=== PATIENT | female | born 1945 | race Asian ===

== ENCOUNTER 2023-10-07 11:28 | Inpatient (IN) | payer BC, MEDICAID ==
[~2023-10-07] VITALS: Ht 152.4 cm; Wt 69.0 kg
[2023-10-07 12:57] LABS: Basophils # (auto) 0 10 ^3/uL (0-0.2); Basophils % (auto) 0.2 % (0.0-2.0); Eosinophils # (auto) 0.1 10 ^3/uL (0-0.8); Eosinophils % (auto) 0.7 % (0.0-7.0); Hematocrit 40.5 % (36.0-46.0); Lymphocytes # (auto) 2.8 10 ^3/uL (0.4-5.4); Lymphocytes % (auto) 30.1 % (10.0-50.0); Mean Corpuscular Hemoglobin 33.8 pg (28.0-32.0); Mean Corpuscular Hgb Conc. 34.5 g/dL (32.0-36.0); Monocytes # (auto) 0.7 10 ^3/uL (0-1.3); Monocytes % (auto) 7.7 % (0.0-12.0); Neutrophils # (auto) 5.8 10 ^3/uL (1.6-8.6); Neutrophils % (auto) 61.3 % (37.0-80.0); Nucleated Red Blood Cells % 0.1 %; Red Blood Cells 4.14 10^6/uL (4.0-5.20); Red Cell Distribution Width 13.2 % (11.8-14.3); White Blood Cell 9.4 10^3/uL (4.4-10.8)
[2023-10-07 13:13] LABS: Chloride 105 mmol/L (98-107); Potassium 3.9 mmol/L (3.5-5.1); Sodium 139 mmol/L (136-145)
[2023-10-07 13:14] LABS: Anion Gap 7 (5-15); Carbon Dioxide 27 mmol/L (20-30)
[2023-10-07 13:15] LABS: Calcium 9.9 mg/dL (8.7-10.4)
[2023-10-07 13:19] LABS: BUN/Creatinine Ratio 22.2 (10.0-20.0); Blood Urea Nitrogen 18 mg/dL (9-23); Glucose 95 mg/dL (74-106)
[2023-10-07 16:45] LABS: Urine Amorphous Crystal FEW /hpf (None Seen); Urine Bacteria FEW /hpf (None Seen); Urine Blood Negative /uL (Negative); Urine Clarity Ex.Turbid (Clear); Urine Color Dark-Brown (Yellow); Urine Mucus FEW (None Seen); Urine Protein, UAD TRACE (Negative); Urine Specific Gravity 1.028 (1.001-1.035); Urine Urobilinogen Normal (Negative); Urine WBC 130 /hpf (0 - 5)
[2023-10-07] MEDS ORDERED: AZIT-43 PO (18:27)
[2023-10-07] MEDS ORDERED: IBUP1TAB5 PO (18:27)
[2023-10-07] MEDS ORDERED: ONDANSETRON HCL 4 MG/2 ML VIAL IV PRN (18:30)
[2023-10-07] MEDS ORDERED: ACETAMINOPHEN 325 MG TAB PO PRN (18:30)
[2023-10-07] MEDS: cefTRIAXone 1GM/50ML D5W 50 ML IV ONE (19:06)
[2023-10-07] MEDS: SODIUM CHLORIDE 0.9% 1,000 ML IV SCH (19:07)
[2023-10-07 19:32] LABS: INR 1.03 (0.9-1.15); Prothrombin Time 10.9 sec (9.3-11.8)
[2023-10-08] VITALS (11 sets, daily range): BP systolic 134–142; BP diastolic 53–74; PULSE 67–80; RESP 16–20; TEMP 97.4–98.3; O2SAT 16–99
[2023-10-08 00:39] LABS: Hematocrit 40.6 % (36.0-46.0)
[2023-10-08 04:56] LABS: Basophils # (auto) 0 10 ^3/uL (0-0.2); Basophils % (auto) 0.3 % (0.0-2.0); Eosinophils # (auto) 0.1 10 ^3/uL (0-0.8); Monocytes # (auto) 0.6 10 ^3/uL (0-1.3); Neutrophils # (auto) 6.1 10 ^3/uL (1.6-8.6)
[2023-10-08 05:00] LABS: Eosinophils % (auto) 1.4 % (0.0-7.0); Hematocrit 38.3 % (36.0-46.0); Hemoglobin 13.4 g/dL (12.2-16.2); Lymphocytes # (auto) 2.6 10 ^3/uL (0.4-5.4); Lymphocytes % (auto) 27.8 % (10.0-50.0); Mean Corpuscular Hemoglobin 34.3 pg (28.0-32.0); Mean Corpuscular Volume 97.9 fL (80.0-100.0); Neutrophils % (auto) 64.5 % (37.0-80.0); Red Blood Cells 3.91 10^6/uL (4.0-5.20); Red Cell Distribution Width 12.8 % (11.8-14.3); White Blood Cell 9.4 10^3/uL (4.4-10.8)
[2023-10-08 05:12] LABS: Alanine Aminotransferase 20 U/L (7-40); Albumin 4.1 g/dL (3.2-4.8); Alkaline Phosphatase 57 U/L (46-116); Anion Gap 8 (5-15); Aspartate Aminotransferase 16 U/L (13-40); Bilirubin, Total 0.8 mg/dL (0.2-1.0); Blood Urea Nitrogen 16 mg/dL (9-23); Calcium 9.1 mg/dL (8.7-10.4); Carbon Dioxide 25 mmol/L (20-30); Chloride 106 mmol/L (98-107); Glucose 84 mg/dL (74-106); Potassium 3.5 mmol/L (3.5-5.1); Sodium 139 mmol/L (136-145)
[2023-10-08] MEDS: cefTRIAXone 1GM/50ML D5W 50 ML IV SCH (10:26)
[2023-10-08 12:32] LABS: Hematocrit 39.3 % (36.0-46.0); Hemoglobin 13.6 g/dL (12.2-16.2)
[2023-10-08] MEDS: PANTOPRAZOLE 40 MG/10 ML VIAL INJ IV ONE (15:00)
[2023-10-08 18:49] LABS: Hematocrit 38.5 % (36.0-46.0); Hemoglobin 13.2 g/dL (12.2-16.2)
[2023-10-08] MEDS ORDERED: PANTOPRAZOLE 40 MG/10 ML VIAL INJ IV SCH (22:00)
[2023-10-08] MEDS: DOCUSATE SOD 100 MG CAP PO SCH (22:13)
[2023-10-09] VITALS (10 sets, daily range): BP systolic 120–149; BP diastolic 56–73; PULSE 16–73; RESP 14–73; TEMP 98–98.7; O2SAT 93–100
[2023-10-09] MEDS: GOLYTELY 4L KIT PO ONE ×2 (05:33→13:00)
[2023-10-09 06:52] LABS: Basophils # (auto) 0 10 ^3/uL (0-0.2); Basophils % (auto) 0.4 % (0.0-2.0); Eosinophils # (auto) 0.2 10 ^3/uL (0-0.8); Lymphocytes # (auto) 2.3 10 ^3/uL (0.4-5.4); Mean Corpuscular Hgb Conc. 35.4 g/dL (32.0-36.0); Monocytes # (auto) 0.5 10 ^3/uL (0-1.3)
[2023-10-09 06:55] LABS: Eosinophils % (auto) 2.2 % (0.0-7.0); Hematocrit 37.9 % (36.0-46.0); Hemoglobin 13.4 g/dL (12.2-16.2); Lymphocytes % (auto) 26.5 % (10.0-50.0); Mean Corpuscular Hemoglobin 34.6 pg (28.0-32.0); Mean Corpuscular Volume 97.8 fL (80.0-100.0); Monocytes % (auto) 5.9 % (0.0-12.0); Neutrophils # (auto) 5.6 10 ^3/uL (1.6-8.6); Red Blood Cells 3.88 10^6/uL (4.0-5.20); White Blood Cell 8.6 10^3/uL (4.4-10.8)
[2023-10-09 07:02] LABS: Anion Gap 5 (5-15); Calcium 9.4 mg/dL (8.7-10.4); Carbon Dioxide 28 mmol/L (20-30); Chloride 107 mmol/L (98-107); Potassium 4.6 mmol/L (3.5-5.1); Sodium 140 mmol/L (136-145)
[2023-10-09 07:08] LABS: BUN/Creatinine Ratio 13.9 (10.0-20.0); Blood Urea Nitrogen 10 mg/dL (9-23); Glucose 90 mg/dL (74-106)
[2023-10-09] MEDS: PANTOPRAZOLE 40 MG/10 ML VIAL INJ IV SCH (08:19)
[2023-10-09] MEDS ORDERED: IOHEXOL 300 MG/ML 100ML BOTTLE IJ ONE (12:04)
[2023-10-09] MEDS: metroNIDAZOLE 500MG/100ML 100 ML IV ONE (20:10)
[2023-10-10 01:00] VITALS: BP 139/63; PULSE 67; RESP 16; TEMP 98; O2SAT 92
[2023-10-10 05:00] VITALS: BP 140/67; PULSE 62; RESP 16; TEMP 98; O2SAT 94
[2023-10-10] MEDS: metroNIDAZOLE 500MG/100ML 100 ML IV SCH (05:27)
[2023-10-10 06:57] LABS: Basophils # (auto) 0 10 ^3/uL (0-0.2); Eosinophils # (auto) 0.2 10 ^3/uL (0-0.8); Lymphocytes # (auto) 2.6 10 ^3/uL (0.4-5.4); Monocytes # (auto) 0.4 10 ^3/uL (0-1.3); Neutrophils # (auto) 3.7 10 ^3/uL (1.6-8.6); Red Cell Distribution Width 12.8 % (11.8-14.3)
[2023-10-10 07:02] LABS: Basophils % (auto) 0.7 % (0.0-2.0); Hematocrit 37.3 % (36.0-46.0); Lymphocytes % (auto) 37.1 % (10.0-50.0); Mean Corpuscular Hemoglobin 33.9 pg (28.0-32.0); Mean Corpuscular Hgb Conc. 34.9 g/dL (32.0-36.0); Monocytes % (auto) 5.8 % (0.0-12.0); Neutrophils % (auto) 53.4 % (37.0-80.0); Nucleated Red Blood Cells % 0.1 %; Red Blood Cells 3.85 10^6/uL (4.0-5.20); White Blood Cell 6.9 10^3/uL (4.4-10.8)
[2023-10-10 07:04] LABS: Chloride 108 mmol/L (98-107); Potassium 3.7 mmol/L (3.5-5.1); Sodium 141 mmol/L (136-145)
[2023-10-10 07:05] LABS: Anion Gap 6 (5-15); Carbon Dioxide 27 mmol/L (20-30)
[2023-10-10 07:06] LABS: Calcium 9.1 mg/dL (8.7-10.4)
[2023-10-10 07:10] LABS: BUN/Creatinine Ratio 9.4 (10.0-20.0); Blood Urea Nitrogen 6 mg/dL (9-23); Glucose 79 mg/dL (74-106)
[2023-10-10 08:39] VITALS: BP 153/73; PULSE 63; RESP 19; TEMP 98.1; O2SAT 93
[2023-10-10] MEDS ORDERED: MIDAZOLAM HCL 2MG/2ML 2ml VIAL (1mg/ml) ONE (12:12)
[2023-10-10] MEDS ORDERED: fentaNYL CITRATE 100 MCG/2 ML VL ONE (12:12)
[2023-10-10] MEDS ORDERED: PROPOFOL 10 MG/ML 20 ML IV ONE (12:47)
[2023-10-10 12:48] VITALS: PULSE 66; RESP 14; O2SAT 96
[2023-10-10] MEDS ORDERED: ONDANSETRON HCL 4 MG/2 ML VIAL IV ONE (13:00)
[2023-10-10 16:53] VITALS: BP 157/64; PULSE 64; RESP 17; TEMP 98.5; O2SAT 93
[2023-10-10 21:00] VITALS: BP 143/56; PULSE 72; RESP 16; TEMP 98.2; O2SAT 90
[2023-10-11 01:00] VITALS: BP 147/50; PULSE 61; RESP 16; TEMP 97.8; O2SAT 90
[2023-10-11 05:00] VITALS: BP 139/45; PULSE 59; RESP 17; TEMP 97.7; O2SAT 91
[2023-10-11 06:56] LABS: Basophils # (auto) 0 10 ^3/uL (0-0.2); Basophils % (auto) 0.5 % (0.0-2.0); Eosinophils # (auto) 0.2 10 ^3/uL (0-0.8); Eosinophils % (auto) 2.8 % (0.0-7.0); Hematocrit 35.2 % (36.0-46.0); Hemoglobin 12.7 g/dL (12.2-16.2); Lymphocytes # (auto) 2.2 10 ^3/uL (0.4-5.4); Lymphocytes % (auto) 36.6 % (10.0-50.0); Mean Corpuscular Hemoglobin 34.4 pg (28.0-32.0); Mean Corpuscular Volume 95.5 fL (80.0-100.0); Monocytes # (auto) 0.4 10 ^3/uL (0-1.3); Monocytes % (auto) 6.9 % (0.0-12.0); Neutrophils # (auto) 3.2 10 ^3/uL (1.6-8.6); Neutrophils % (auto) 53.2 % (37.0-80.0); Red Blood Cells 3.69 10^6/uL (4.0-5.20); Red Cell Distribution Width 12.8 % (11.8-14.3)
[2023-10-11 07:08] LABS: Anion Gap 4 (5-15); Carbon Dioxide 28 mmol/L (20-30); Chloride 108 mmol/L (98-107); Sodium 140 mmol/L (136-145)
[2023-10-11 07:10] LABS: Calcium 9.3 mg/dL (8.7-10.4)
[2023-10-11 07:14] LABS: BUN/Creatinine Ratio 11.8 (10.0-20.0); Blood Urea Nitrogen 8 mg/dL (9-23); Glucose 82 mg/dL (74-106)
[2023-10-11 08:00] VITALS: BP 135/45; PULSE 58; RESP 16; TEMP 97.5; O2SAT 92
[2023-10-11] MEDS ORDERED: CIPR-173 PO (09:18)
[2023-10-11] MEDS ORDERED: METR-344 PO (09:18)
[2023-10-11] MEDS ORDERED: PANT40TA2 PO (09:18)
[2023-10-11 11:30] VITALS: BP 126/40; PULSE 62; RESP 16; TEMP 97.9; O2SAT 91
== END 2023-10-11 13:12 | disposition home or self-care (01) | DRG 394 ==
LOC: ER 11:45 → TELE 18:27 → TELE-CENTR 10-08 04:40 → CENTRAL 10-09 09:07
PROVIDERS: ADMIT Internal Medicine Pulmonary Disease; ATTEND Internal Medicine Pulmonary Disease
PROC: 0DBM8ZX Excision of Descending Colon, Via Natural or Artificial Opening Endoscopic, Diagnostic (ICD-10-PCS; principal; 2023-10-10 12:03)
DX: K55.039 Acute (reversible) ischemia of large intestine, extent unspecified (principal); N39.0 Urinary tract infection, site not specified; K29.70 Gastritis, unspecified, without bleeding; K59.00 Constipation, unspecified; K27.9 Peptic ulcer, site unspecified, unspecified as acute or chronic, without hemorrhage or perforation; K64.8 Other hemorrhoids
CPT/HCPCS: 36415; 71045; 74177; 80048; 80053; 81001; 85014; 85018; 85025; 85610; 86850; 86900; 86901; G0378; J2250; J2470; J2704; J3490